=== PATIENT | female | born 1950 | race Caucasian/White ===

== ENCOUNTER 2017-11-16 07:36 | Inpatient (IN) ==
[2017-11-16] MEDS ORDERED: 0.9 % Sodium Chloride 500 ML IVC ONE (07:50)
[2017-11-16 08:07] LABS: INR 1.1; Prothrombin Time 11.5 Seconds (9.4-12.1)
[2017-11-16 08:10] LABS: Activated Partial Thrombo Time 45.5 Seconds (26.0-36.0); Hematocrit 42.6 % (35.3-44.9); Hemoglobin 12.8 g/dL (11.5-15.4); Mean Corpuscular Hemoglobin 31.9 pg (28.0-33.3); Mean Corpuscular Volume 106.2 fL (83.0-100.0); Mean Platelet Volume 10.6 fL (9.4-12.4); Nucleated Red Blood Cells 0.3 /100 WBC (0); Platelet Count 180 K/mcL (140-400); Red Blood Count 4.01 M/mcL (3.82-4.97); Red Cell Distribution Width 12.5 % (11.5-14.5)
[2017-11-16 08:12] LABS: Troponin I < 0.03 ng/mL (< 0.04)
[2017-11-16 08:15] LABS: BUN/Creatinine Ratio 19 (6-26); Blood Urea Nitrogen 24 mg/dL (8-23); Calcium 9.7 mg/dL (8.6-10.3); Carbon Dioxide 14 mEq/L (23-29); Chloride 109 mEq/L (98-107); Glucose 244 mg/dL (70-105); Osmolality,Calculated 312 (280-300); Potassium 4.2 mEq/L (3.5-5.1); Sodium 145 mEq/L (136-145); eGFR For African Americans 50 (> 60); eGFR For Non-African Americans 42 (> 60)
[2017-11-16 08:41] LABS: ABG Base Excess -13 mEq/L (-2 to 3); ABG HCO3 15 mEq/L (21-27); ABG Oxygen Saturation 93 % (95-98); ABG PCO2 38 mmHg (35-45); ABG PO2 81 mmHg (85-104); ABG TCO2 16 mEq/L (20-26); Blood Gas Modality ASSIST CONTROL; Blood Gas PEEP 5 cm H2O; Blood Gas Respiration Rate 20; Blood Gas VT 450 cc
[2017-11-16 08:42] LABS: Eosinophils # 0.3 K/mcL (0.0-0.6); Lymphocytes # 7.5 K/mcL (0.6-4.6); Monocytes # 2.1 K/mcL (0.0-1.3); Neutrophils # 3.5 K/mcL (1.6-8.9); Reactive Lymphocytes Present (Not Present)
[2017-11-16 08:44] LABS: Platelet Estimate Normal (Normal)
--- NOTE | 2017-11-16 09:01 | Emergency Department Note ---
Disposition Clinical Impression: Cardiac arrest Disposition: Admitted As Inpatient Condition: Critical Time of Disposition: 11:57 General Adult HPI - General Chief complaint: ED Cardiac Arrest/CPR Stated complaint: arrest Time Seen by Provider: 11/16/17 07:49 Nursing Notes Reviewed: Yes Vital Signs Reviewed: Yes - History of Present Illness HPI Narrative: Patient brought in by EMS in full cardiac arrest. Was reported to be choking at her outlying facility. EMS reports patient was mentating appropriately and moving air. She ambulated to their truck where she subsequently went into full cardiac arrest. Pain Scale: 0 - Related Data Home Medications Medication Instructions Recorded Confirmed Aspirin Enteric Coated [Aspirin EC] 325 mg PO DAILY 11/16/17 11/16/17 Benztropine [Cogentin] 1 mg PO BID 11/16/17 11/16/17 Divalproex Sodium [Depakote 125 mg PO TID 11/16/17 11/16/17 Sprinkle] Donepezil [Aricept] 5 mg PO DAILY 11/16/17 11/16/17 LORazepam [Ativan] 0.5 mg PO TID 11/16/17 11/16/17 Meloxicam [Meloxicam] 15 mg PO DAILY 11/16/17 11/16/17 Mirtazapine [Remeron] 15 mg PO HS 11/16/17 11/16/17 Omeprazole [PriLOSEC] 20 mg PO DAILY 11/16/17 11/16/17 Ziprasidone HCl [Ziprasidone HCl] 20 mg PO TID 11/16/17 11/16/17 Allergies Allergy/AdvReac Type Severity Reaction Status Date / Time acetaminophen [From Vicodin] Allergy Rash Verified 03/17/15 19:12 hydrocodone [From Vicodin] Allergy Rash Verified 03/17/15 19:12 Limitations: ROS unobtainable due to patients medical condition Past Medical History - Past Medical History Medical history: Reports: arthritis, dementia, GERD Psychiatric history: Reports: anxiety, depression, other - Social History Smoking Status: Never smoker Smokeless Tobacco Status: No Alcohol use: Reports: none Drug use: Reports: none Physical Exam - General Limitations: altered mental status General appearance: in distress, other (Cardiac arrest) - Head Head exam: atraumatic, normocephalic, normal inspection - Eye Eye exam: Present: other (Pupils reactive to light left pupil mildly more dilated than right pupil. Left pupil 5 mm right pupil 4 mm.) - ENT ENT exam: normal exam, normal oropharynx, mucous membranes moist, other (Food in posterior oropharynx) - Neck Neck exam: Present: normal inspection, trachea midline - Respiratory Respiratory exam: Present: other (Lung sounds rhonchorous are present bilaterally respirations assisted.) - Cardiovascular Cardiovascular exam: Present: other (Pulseless) - Abdominal Exam Abdominal exam: Present: soft. Absent: distention - Extremities Exam Extremities exam: Absent: pedal edema - Skin Skin exam: Present: warm, dry, intact Course Course Narrative: Patient is brought in by EMS in full cardiac arrest. Patient lives at a facility and has a history of MRDD. They state that at home she was choking on a waffle however her airway became clear and she was mentating appropriately when EMS arrived. They stated she ambulated to the cot and subsequently went into full cardiac arrest in the ambulance. They performed CPR prior to arrival here. CPR was continued here. Patient was easy to crs-aalii-awps ventilate. She was placed on the cardiac surgeon. At arrival here during intubation patient had a large amount of food product in her airway. Patient was intubated with a d blade on the [facility] due to a reported history of a C-spine injury. I subsequently looked at her previous C-spine images and the patient does have a transverse process fracture at C4. We placed her in a c-collar. Patient was given epinephrine every 2-3 minutes throughout the cardiac arrest. She is also given 2 amps of bicarbonate and calcium chloride. Patient was warm and glucose was normal. Patient was in asystole throughout the arrest until the patient regained a pulse and was in atrial fibrillation with RVR. Patient was placed on an epinephrine drip. Postarrest bedside echo showed wall motion in all 4 chambers. Did not appear to be an effusion. Patient was placed on the ventilator. We sent basic labs. We will admit her to the ICU. I spoke with the ICU attending is requesting a CTA of her chest as well as a CT of her head and C-spine. We will order these. Chest x-ray of patient's chest showed a calcified mass in the center of her chest. It does not appear to be bronchial. Caregiver is at bedside state that the calcified lesion on the patient's chest x-ray had been present for several years. We also consult to interventional cardiology due to the patient's postarrest. We discussed there was no ST elevation however she does have diffuse depression. He saw the patient at bedside. He was willing to The patient if needed however believe that this could possibly be due to a anoxic arrest due to choking. Patient was found to have a mildly elevated white blood cell count. His CK and troponin were ordered. Her troponin is elevated as to be expected after the cardiac arrest. - Consultations Consultation #1: I spoke with Dr Mccarthy. He is requesting a CTA of the chest CT noncontrast of the head and C-spine. I feel this is reasonable. We also spoke about cooling the patient if cardiology does not want different intervention and I feel this is reasonable. Time: :11 Consultation #2: I spoke with Dr Munson. He is coming to see the Pt. Time: :19 Consultation #3: Dr. Munson at bedside. Stating that he will Patient if needed. Requesting this time to have serial troponins. No indication for emergent catheter at this time. We will reevaluate the patient after her CT head and CT C-spine and CT chest. Time: 09:30 Additional Consultation(s): 0907 Dr. Mccarthy at bedside. Agreeable for a CT chest CT C-spine CTA chest. Vital Signs Temperature 0 F L 11/16/17 07:38 Pulse Rate 0 11/16/17 07:38 Respiratory Rate 0 11/16/17 07:38 Blood Pressure 0/0 11/16/17 07:38 O2 Sat by Pulse Oximetry 0 11/16/17 07:38 Temperature 94.3 F L 11/16/17 10:21 Pulse Rate 70 11/16/17 10:21 Respiratory Rate 20 11/16/17 11:03 Blood Pressure 109/51 11/16/17 11:03 O2 Sat by Pulse Oximetry 93 11/16/17 11:03 Oxygen Delivery Oxygen Delivery Ventilator Procedures - Central Line Placement Right Femoral Central Line Inserted*: Yes Central Line Catheter Replacement*: No Central Line Insertion: emergent Procedural Pause: verify patient name and date of , timeout performed per policy, lloyd and assess the site, assemble equipment and verify supplies, perform hand hygiene During the Procedure: clinician is wearing sterile gloves, cap, mask,& gown during insertion, sterile field and sterile technique are maintained, everyone in room is wearing a mask Central Line Prep: Chlorhexidine scrub Prep the Procedure Site: apply chloraprep to the skin using a back and forth scrubbing motion, apply chloraprep for 30 seconds (upper body), 1-2 min ( femoral sites), allow prep to dry, drape the patient with a full body drape Central Line Lumen Inserted: triple Post Procedure: sutured in place, good blood return, all ports aspirated, flushed, capped, sterile dressing applied, guide wire removed and visualized Patient Tolerated Procedure: well Complications: none Date: 11/16/17 Time: 08:30 - Intubation Time out performed: No sedative: none Laryngoscope: fiber optic video scope Assist Device Used: Bougie ET Tube Size: 7.5 ET Tube Uncuffed: No Tube Secured Depth (cm): 23 Tube Secured Location: lips Tube Placement Confirmation: visualized tube passing through cords, equal breath sounds bilaterally, no breath sounds over epigastrium, confirmation by capnometry Patient Tolerated Procedure: well, other (Patient had a significant amount of food product and posterior oropharynx.) Intubation Complications: difficult intubation (Due to C-spine fracture. As well as food product and posterior pharynx.) - Ultrasound-Other Narrative: Bedside ultrasound showed normal wall movement however there is no pericardial effusion. Limited study performed by myself supervised by Dr. Decker. Medical Decision Making - Medical Records Medical records reviewed: Yes I reviewed the patient's medical records. - Lab Data Lab results reviewed: Yes I reviewed the patient's lab results. Result diagrams: 11/16/17 07:38 11/16/17 07:38 Lab Results 11/16/17 11/16/17 11/16/17 Range/Units 07:38 07:38 07:38 WBC 13.3 H (4.3-11.1) K/mcL RBC 4.01 (3.82-4.97) M/mcL Hgb 12.8 (11.5-15.4) g/dL Hct 42.6 (35.3-44.9) % MCV 106.2 H (83.0-100.0) fL MCH 31.9 (28.0-33.3) pg MCHC 30.0 L (31.6-35.5) g/dL RDW 12.5 (11.5-14.5) % Plt Count 180 (140-400) K/mcL MPV 10.6 (9.4-12.4) fL Seg Neutrophils % 26.0 % Lymphocytes % 56.0 % Monocytes % 16.0 % Eosinophils % 2.0 % Neutrophils # 3.5 (1.6-8.9) K/mcL Lymphocytes # 7.5 H (0.6-4.6) K/mcL Monocytes # 2.1 H (0.0-1.3) K/mcL Eosinophils # 0.3 (0.0-0.6) K/mcL Nucleated RBCs/100 WBC 0.3 H (0) /100 WBC Reactive Lymphocytes Present A (Not Present) Platelet Estimate Normal (Normal) Smear Path Review See Below PT 11.5 (9.4-12.1) Seconds INR 1.1 APTT 45.5 H (26.0-36.0) Seconds Sample Site ABG pH (7.32-7.45) pH Units ABG pCO2 (35-45) mmHg ABG pO2 (85-104) mmHg ABG HCO3 (21-27) mEq/L ABG Total CO2 (20-26) mEq/L ABG O2 Saturation (95-98) % ABG Base Excess (-2 to 3) mEq/L Respiration Rate O2 Delivery Device Blood Gas Modality Inspired O2 (1-15=lpm [id number]=%) Tidal Volume cc PEEP cm H2O Sodium 145 (136-145) mEq/L Potassium 4.2 (3.5-5.1) mEq/L Chloride 109 H (98-107) mEq/L Carbon Dioxide 14 L (23-29) mEq/L BUN 24 H (8-23) mg/dL Creatinine 1.29 H (0.60-1.20) mg/dL Est GFR ( Amer) 50 L (> 60) Est GFR (Non-Af Amer) 42 L (> 60) BUN/Creatinine Ratio 19 (6-26) Glucose 244 H (70-105) mg/dL POC Glucose (70-99) mg/dL Calculated Osmolality 312 H (280-300) Calcium 9.7 (8.6-10.3) mg/dL Creatine Kinase 130 (30-223) Units/L Troponin I < 0.03 (< 0.04) ng/mL 11/16/17 11/16/17 Range/Units 07:52 08:34 WBC (4.3-11.1) K/mcL RBC (3.82-4.97) M/mcL Hgb (11.5-15.4) g/dL Hct (35.3-44.9) % MCV (83.0-100.0) fL MCH (28.0-33.3) pg MCHC (31.6-35.5) g/dL RDW (11.5-14.5) % Plt Count (140-400) K/mcL MPV (9.4-12.4) fL Seg Neutrophils % % Lymphocytes % % Monocytes % % Eosinophils % % Neutrophils # (1.6-8.9) K/mcL Lymphocytes # (0.6-4.6) K/mcL Monocytes # (0.0-1.3) K/mcL Eosinophils # (0.0-0.6) K/mcL Nucleated RBCs/100 WBC (0) /100 WBC Reactive Lymphocytes (Not Present) Platelet Estimate (Normal) Smear Path Review PT (9.4-12.1) Seconds INR APTT (26.0-36.0) Seconds Sample Site R Radial ABG pH 7.20 L* (7.32-7.45) pH Units ABG pCO2 38 (35-45) mmHg ABG pO2 81 L (85-104) mmHg ABG HCO3 15 L (21-27) mEq/L ABG Total CO2 16 L (20-26) mEq/L ABG O2 Saturation 93 L (95-98) % ABG Base Excess -13 L (-2 to 3) mEq/L Respiration Rate 20 O2 Delivery Device Adult Vent Blood Gas Modality ASSIST CONTROL Inspired O2 50.0 (1-15=lpm [id number]=%) Tidal Volume 450 cc PEEP 5 cm H2O Sodium (136-145) mEq/L Potassium (3.5-5.1) mEq/L Chloride (98-107) mEq/L Carbon Dioxide (23-29) mEq/L BUN (8-23) mg/dL Creatinine (0.60-1.20) mg/dL Est GFR ( Amer) (> 60) Est GFR (Non-Af Amer) (> 60) BUN/Creatinine Ratio (6-26) Glucose (70-105) mg/dL POC Glucose 102 H (70-99) mg/dL Calculated Osmolality (280-300) Calcium (8.6-10.3) mg/dL Creatine Kinase (30-223) Units/L Troponin I (< 0.04) ng/mL - Radiology Data Radiology results reviewed: Yes I reviewed the patient's radiology results. Chest X-Ray 11/16/17 07:50 IMPRESSION: 1. Endotracheal tube lies 1.9 cm above the [place]. 2. Enteric tube is in the stomach. 3. Bilateral asymmetric pulmonary consolidation more prominent on the left. This may represent atypical pneumonia versus less likely pulmonary edema. D/ / 11/16/2017 09:43:23 Gino Wilson MD / juan jose Interpreting Provider: Gino Wilson MD KUB X-Ray 11/16/17 08:00 IMPRESSION: The enteric tube is in the stomach with the tip at the distal gastric body. D/ / 11/16/2017 09:40:53 Gnio Wilson MD / megan Interpreting Provider: Gino Wilson MD - EKG Data EKG #1 EKG attestation: Yes I reviewed and interpreted this EKG. EKG results narrative: 07:49 Atrial fibrillation with RVR at 116. QRS duration is 135. QT is 323. QTC is 392. She has diffuse ST depressions. No signs of ST elevation. Previous EKG in August 2016 was a sinus rhythm at a rate of 77. EKG #2 EKG attestation: Yes I reviewed and interpreted this EKG. EKG results narrative: Repeat EKG 833 Ventricular rate of 127. Atrial fibrillation with RVR. QRS duration is 125. QT is 3:30. QTC is 414. Patient still has diffuse ST depressions. There are no signs of ST elevations. EKG #3 EKG attestation: Yes I reviewed and interpreted this EKG. EKG results narrative: Repeat EKG timed 927. Normal sinus rhythm at a rate of 63. UT interval is 147. Castration is 138 QT is 510. QTC is 518. Patient does have an elongated QT segment. She has some ST depressions in leads V3 through V6. There are still no signs of ST elevation.
[2017-11-16] MEDS ORDERED: Isovue-370 500 ML INFUS..BTL IV ONE (09:05)
[2017-11-16 09:46] LABS: Creatine Kinase 130 Units/L (30-223)
[2017-11-16 10:06] LABS: Troponin I 1.96 ng/mL (< 0.04)
--- NOTE | 2017-11-16 10:07 | Event Note ---
Date of Encounter: 11/16/17 Time of Encounter: 10:04 - Cardiology Event Note Called to evaluate patient in the ED for possible emergent LHC. Patient sedated on the Vent intubated. Dr. Rooney at the bedside. EKG without any ST elevations at this time. Rate at 60-65 bpm. Patient choked on waffle which was in airway on arrival to the ED. Patient arrested with asystole, NO Vtachor Vfib noted. Patient did not complain of chest pain after initial choking episode and asystole. Severe resp acidosis on ABG. On exam patient with left pupil dilated > right and fixed. CT head, chest prior to further cardiac testing. Initial trop negative, serial trops and CKS ordered. Please contact if elevated trops. Rounding team aware and will see in consult.
--- NOTE | 2017-11-16 10:26 | Emergency Department Note ---
Disposition Clinical Impression: Cardiac arrest Disposition: Admitted As Inpatient General Adult HPI - General Chief complaint: ED Cardiac Arrest/CPR Stated complaint: arrest Time Seen by Provider: 11/16/17 07:49 - History of Present Illness Pain Scale: 0 - Related Data Home Medications Medication Instructions Recorded Confirmed Aspirin Enteric Coated [Aspirin EC] 325 mg PO DAILY 11/16/17 11/16/17 Benztropine [Cogentin] 1 mg PO BID 11/16/17 11/16/17 Divalproex Sodium [Depakote 125 mg PO TID 11/16/17 11/16/17 Sprinkle] Donepezil [Aricept] 5 mg PO DAILY 11/16/17 11/16/17 LORazepam [Ativan] 0.5 mg PO TID 11/16/17 11/16/17 Meloxicam [Meloxicam] 15 mg PO DAILY 11/16/17 11/16/17 Mirtazapine [Remeron] 15 mg PO HS 11/16/17 11/16/17 Omeprazole [PriLOSEC] 20 mg PO DAILY 11/16/17 11/16/17 Ziprasidone HCl [Ziprasidone HCl] 20 mg PO TID 11/16/17 11/16/17 Allergies Allergy/AdvReac Type Severity Reaction Status Date / Time acetaminophen [From Vicodin] Allergy Rash Verified 03/17/15 19:12 hydrocodone [From Vicodin] Allergy Rash Verified 03/17/15 19:12 Past Medical History - Past Medical History Medical history: Reports: arthritis, dementia, GERD Psychiatric history: Reports: anxiety, depression, other - Social History Smoking Status: Never smoker Smokeless Tobacco Status: No Alcohol use: Reports: none Drug use: Reports: none Physical Exam - General General appearance: in distress Course - Reevaluation(s) Reevaluation #1: Attestation note I examined this patient and my medical decision-making was reviewed with the emergency medicine resident. I agree with the documented findings, disposition and treatment plan as described except to the extent set forth below. Patient seen with emergency medicine resident Dr. Rossy Rooney, Please see a copy of his note for details of the H&P, ED evaluation, management and disposition. I have independently evaluated the patient and confirmed appropriate portions of the history and physical exam. 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 Then upon the joint cardio pulmonary rest CPR was started emergently was transported here without delay. Upon arrival IV was established Accu-Chek was 1:30 several rounds of ACLS with CPR was performed with return of spontaneous circulation confirmed by training bedside ultrasound by Dr. Rooney. Patient's troponin elevated, not unexpectedly at 1.97, we consulted interventional cardiology who felt emergent catheter was not indicated at this time patient is undergoing CT scan of the head and chest. Patient will be admitted to the intensive care unit. We have provided 75 minutes of critical care service for this patient Time: 10:24 Vital Signs Temperature 0 F L 11/16/17 07:38 Pulse Rate 0 11/16/17 07:38 Respiratory Rate 0 11/16/17 07:38 Blood Pressure 0/0 11/16/17 07:38 O2 Sat by Pulse Oximetry 0 11/16/17 07:38 Temperature 94.3 F L 11/16/17 10:21 Pulse Rate 70 11/16/17 10:21 Respiratory Rate 20 11/16/17 10:21 Blood Pressure 111/51 11/16/17 10:21 O2 Sat by Pulse Oximetry 98 11/16/17 10:21 Oxygen Delivery Oxygen Delivery Ventilator Medical Decision Making - Lab Data Result diagrams: 11/16/17 07:38 11/16/17 07:38 Lab Results 11/16/17 11/16/17 11/16/17 Range/Units 07:38 07:38 07:38 WBC 13.3 H (4.3-11.1) K/mcL RBC 4.01 (3.82-4.97) M/mcL Hgb 12.8 (11.5-15.4) g/dL Hct 42.6 (35.3-44.9) % MCV 106.2 H (83.0-100.0) fL MCH 31.9 (28.0-33.3) pg MCHC 30.0 L (31.6-35.5) g/dL RDW 12.5 (11.5-14.5) % Plt Count 180 (140-400) K/mcL MPV 10.6 (9.4-12.4) fL Seg Neutrophils % 26.0 % Lymphocytes % 56.0 % Monocytes % 16.0 % Eosinophils % 2.0 % Neutrophils # 3.5 (1.6-8.9) K/mcL Lymphocytes # 7.5 H (0.6-4.6) K/mcL Monocytes # 2.1 H (0.0-1.3) K/mcL Eosinophils # 0.3 (0.0-0.6) K/mcL Nucleated RBCs/100 WBC 0.3 H (0) /100 WBC Reactive Lymphocytes Present A (Not Present) Platelet Estimate Normal (Normal) PT 11.5 (9.4-12.1) Seconds INR 1.1 APTT 45.5 H (26.0-36.0) Seconds Sample Site ABG pH (7.32-7.45) pH Units ABG pCO2 (35-45) mmHg ABG pO2 (85-104) mmHg ABG HCO3 (21-27) mEq/L ABG Total CO2 (20-26) mEq/L ABG O2 Saturation (95-98) % ABG Base Excess (-2 to 3) mEq/L Respiration Rate O2 Delivery Device Blood Gas Modality Inspired O2 (1-15=lpm [id number]=%) Tidal Volume cc PEEP cm H2O Sodium 145 (136-145) mEq/L Potassium 4.2 (3.5-5.1) mEq/L Chloride 109 H (98-107) mEq/L Carbon Dioxide 14 L (23-29) mEq/L BUN 24 H (8-23) mg/dL Creatinine 1.29 H (0.60-1.20) mg/dL Est GFR ( Amer) 50 L (> 60) Est GFR (Non-Af Amer) 42 L (> 60) BUN/Creatinine Ratio 19 (6-26) Glucose 244 H (70-105) mg/dL POC Glucose (70-99) mg/dL Calculated Osmolality 312 H (280-300) Calcium 9.7 (8.6-10.3) mg/dL Creatine Kinase 130 (30-223) Units/L Troponin I < 0.03 (< 0.04) ng/mL 11/16/17 11/16/17 Range/Units 07:52 08:34 WBC (4.3-11.1) K/mcL RBC (3.82-4.97) M/mcL Hgb (11.5-15.4) g/dL Hct (35.3-44.9) % MCV (83.0-100.0) fL MCH (28.0-33.3) pg MCHC (31.6-35.5) g/dL RDW (11.5-14.5) % Plt Count (140-400) K/mcL MPV (9.4-12.4) fL Seg Neutrophils % % Lymphocytes % % Monocytes % % Eosinophils % % Neutrophils # (1.6-8.9) K/mcL Lymphocytes # (0.6-4.6) K/mcL Monocytes # (0.0-1.3) K/mcL Eosinophils # (0.0-0.6) K/mcL Nucleated RBCs/100 WBC (0) /100 WBC Reactive Lymphocytes (Not Present) Platelet Estimate (Normal) PT (9.4-12.1) Seconds INR APTT (26.0-36.0) Seconds Sample Site R Radial ABG pH 7.20 L* (7.32-7.45) pH Units ABG pCO2 38 (35-45) mmHg ABG pO2 81 L (85-104) mmHg ABG HCO3 15 L (21-27) mEq/L ABG Total CO2 16 L (20-26) mEq/L ABG O2 Saturation 93 L (95-98) % ABG Base Excess -13 L (-2 to 3) mEq/L Respiration Rate 20 O2 Delivery Device Adult Vent Blood Gas Modality ASSIST CONTROL Inspired O2 50.0 (1-15=lpm [id number]=%) Tidal Volume 450 cc PEEP 5 cm H2O Sodium (136-145) mEq/L Potassium (3.5-5.1) mEq/L Chloride (98-107) mEq/L Carbon Dioxide (23-29) mEq/L BUN (8-23) mg/dL Creatinine (0.60-1.20) mg/dL Est GFR ( Amer) (> 60) Est GFR (Non-Af Amer) (> 60) BUN/Creatinine Ratio (6-26) Glucose (70-105) mg/dL POC Glucose 102 H (70-99) mg/dL Calculated Osmolality (280-300) Calcium (8.6-10.3) mg/dL Creatine Kinase (30-223) Units/L Troponin I (< 0.04) ng/mL
[2017-11-16] MEDS ORDERED: Norepinephrine 4 MG in D5% in Water 250 ML IVC SCH (10:30)
[2017-11-16] MEDS: *HR* Morphine 2 MG/ML SYRINGE IVP PRN ×2 (13:45→15:58)
[2017-11-16] MEDS: *HR* LORazepam 2 MG/ML VIAL IVP PRN ×2 (13:46→15:58)
--- NOTE | 2017-11-16 14:01 | Pulmonology History & Physical ---
<Kendall Maier - Last Filed: 11/16/17 13:56> Date of Encounter: 11/16/17 Time of Encounter: 11:00 Assessment and Plan (1) Cardiac arrest Current visit: Yes Status: Acute Cardiac arrest status post ROSC The patient received approximately 5 rounds of CPR ROSC was achieved, pressure supported with epinephrine It is unclear how long the patient remained anoxic EKG did demonstrate diffuse ST-T wave depressions Cardiology was contacted, recommended scans prior to any further cardiac work (2) Aortic dissection Current visit: Yes Status: Acute Chromo type A aortic dissection Likely secondary to traumatic CPR Findings were discussed with thoracic/vascular surgeon from [facility] Transfer was considered, however the patient's prognosis is extremely guarded It does appear the patient has some degree of anoxic brain injury It was our concern that the final injuries may not be compatible with recovery Long discussion with the family yielded a result the family would prefer for the patient to remain comfortable They opted not to transfer the patient We will place the patient on comfort care measures and extubated Qualifiers: Aortic location: thoracoabdominal aorta Qualified Code(s): I71.03 - Dissection of thoracoabdominal aorta (3) Anoxic brain damage Current visit: Yes Status: Acute Likely anoxic brain damage secondary to cardiac arrest The patient does show signs of posturing as well as myoclonic jerks that are intermittent but frequent The patient's pupils are unequal in size, and eyes deviated in different directions Head CT is negative, however we will withhold MRI and EEG Patient will remain comfort care at this History of Present Illness Chief complaint: Cardiac arrest HPI: Ms. Roach is a 66 year old female with history of mild MRDD and recent C-spine fracture following a mechanical fall in June 2017 who presents to the ED and cardiac arrest. The patient is intubated and unconscious at time of transfer, and history is maintained primarily from family and witnesses. She apparently was eating breakfast this morning and began choking on a waffle at which time the Heimlich maneuver was performed and she was successfully able to expel the food material. EMS arrived at the scene and the patient was alert and responsive, and even sit up to walk to the cot. Upon transport, the patient apparently had a syncopal event, collapse, and it was found that she was in cardiac arrest. CPR was initiated immediately, and the patient was transported to the ED where a CODE BLUE was initiated. The patient received 5 rounds of ACLS including epinephrine, 2 A of bicarbonate, calcium chloride. She was resuscitated successfully and the central line was placed to allow for vasopressor support. An EKG at that time did demonstrate the patient had diffuse and marketed ST-T wave depressions along with an elevated troponin. Cardiology was consulted notes on the patient in the ED. At that time she was transferred to the ICU. Past Med Surg Social Fam HX - Past Medical History Medical history: arthritis, dementia, GERD Psychiatric history: anxiety, depression, other - Social History Smoking Status: Never smoker Smokeless Tobacco Status: No Alcohol use: none Drug use: none Medications and Allergies Aspirin Enteric Coated [Aspirin EC] 325 mg PO DAILY 11/16/17 [History] Benztropine [Cogentin] 1 mg PO BID 11/16/17 [History] Divalproex Sodium [Depakote Sprinkle] 125 mg PO TID 11/16/17 [History] Donepezil [Aricept] 5 mg PO DAILY 11/16/17 [History] LORazepam [Ativan] 0.5 mg PO TID 11/16/17 [History] Meloxicam [Meloxicam] 15 mg PO DAILY 11/16/17 [History] Mirtazapine [Remeron] 15 mg PO HS 11/16/17 [History] Omeprazole [PriLOSEC] 20 mg PO DAILY 11/16/17 [History] Ziprasidone HCl [Ziprasidone HCl] 20 mg PO TID 11/16/17 [History] 3 Allergy/AdvReac Type Severity Reaction Status Date / Time acetaminophen [From Vicodin] Allergy Rash Verified 03/17/15 19:12 hydrocodone [From Vicodin] Allergy Rash Verified 03/17/15 19:12 ROS unobtainable: due to endotracheal tube All Systems: The remainder of the systems were reviewed and are negative Physical Examination Vital Signs: Vital Signs, Last 4 Hours Temp Pulse Resp BP Pulse Ox 11/16/17 12:08 70 11/16/17 11:03 20 109/51 93 11/16/17 10:21 94.3 F L 70 20 111/51 98 General appearance: comatose Eyes: other (Pupils are unequal, left eye deviates towards the left right eye deviates towards the right, there is no reaction to light.) ENT: oropharynx moist, oropharynx erythematous, other (There is serosanguineous fluid secondary to what appears to be a traumatic intubation) Neck: supple, no JVD Effort: mildly labored Auscultation: bilateral: rhonchi (Coarse rhonchi) Cardiovascular: regular rate and rhythm Gastrointestinal: soft, non-tender Integumentary: normal Extremities: no cyanosis, no edema, no clubbing Musculoskeletal: no deformities, ROM normal unable to assess due to mental status, other (Pupils unequal in size, left eye deviates laterally to the left, right eye deviates laterally to the right. The patient presents with intermittent myoclonic jerks and occasional posturing. Babinski sign is negative. DTRs appear to remain intact) Results - Laboratory Findings CBC and BMP: 11/16/17 07:38 11/16/17 07:38 ABG ABG pH 7.20 pH Units (7.32-7.45) L* 11/16/17 08:34 ABG pCO2 38 mmHg (35-45) 11/16/17 08:34 ABG pO2 81 mmHg (85-104) L 11/16/17 08:34 ABG O2 Saturation 93 % (95-98) L 11/16/17 08:34 PT/INR, D-dimer PT 11.5 Seconds (9.4-12.1) 11/16/17 07:38 Abnormal lab findings: Abnormal lab results WBC 13.3 K/mcL (4.3-11.1) H 11/16/17 07:38 MCV 106.2 fL (83.0-100.0) H 11/16/17 07:38 MCHC 30.0 g/dL (31.6-35.5) L 11/16/17 07:38 Lymphocytes # 7.5 K/mcL (0.6-4.6) H 11/16/17 07:38 Monocytes # 2.1 K/mcL (0.0-1.3) H 11/16/17 07:38 Nucleated RBCs/100 WBC 0.3 /100 WBC (0) H 11/16/17 07:38 Reactive Lymphocytes Present (Not Present) A 11/16/17 07:38 APTT 45.5 Seconds (26.0-36.0) H 11/16/17 07:38 ABG pH 7.20 pH Units (7.32-7.45) L* 11/16/17 08:34 ABG pO2 81 mmHg (85-104) L 11/16/17 08:34 ABG HCO3 15 mEq/L (21-27) L 11/16/17 08:34 ABG Total CO2 16 mEq/L (20-26) L 11/16/17 08:34 ABG O2 Saturation 93 % (95-98) L 11/16/17 08:34 ABG Base Excess -13 mEq/L (-2 to 3) L 11/16/17 08:34 Chloride 109 mEq/L (98-107) H 11/16/17 07:38 Carbon Dioxide 14 mEq/L (23-29) L 11/16/17 07:38 BUN 24 mg/dL (8-23) H 11/16/17 07:38 Creatinine 1.29 mg/dL (0.60-1.20) H 11/16/17 07:38 Est GFR ( Amer) 50 (> 60) L 11/16/17 07:38 Est GFR (Non-Af Amer) 42 (> 60) L 11/16/17 07:38 Glucose 244 mg/dL (70-105) H 11/16/17 07:38 POC Glucose 102 mg/dL (70-99) H 11/16/17 07:52 Calculated Osmolality 312 (280-300) H 11/16/17 07:38 Lactic Acid > 10.0 mmol/L (0.5-2.2) H* 11/16/17 10:59 Troponin I 1.96 ng/mL (< 0.04) H* 11/16/17 09:33 <Suhail Mccarthy W - Last Filed: 11/16/17 14:31> Date of Encounter: 11/16/17 History of Present Illness HPI: Ms. Roach is a 66 year old female All Systems: The remainder of the systems were reviewed and are negative Physical Examination Vital Signs: Vital Signs, Last 4 Hours Temp Pulse Resp BP Pulse Ox 11/16/17 14:06 89 28 82/51 87 11/16/17 13:00 66 20 90/43 98 11/16/17 12:08 70 11/16/17 12:00 96.0 F L 70 20 109/51 97 11/16/17 11:03 20 109/51 93 Results - Laboratory Findings CBC and BMP: 11/16/17 07:38 11/16/17 07:38 ABG ABG pH 7.20 pH Units (7.32-7.45) L* 11/16/17 08:34 ABG pCO2 38 mmHg (35-45) 11/16/17 08:34 ABG pO2 81 mmHg (85-104) L 11/16/17 08:34 ABG O2 Saturation 93 % (95-98) L 11/16/17 08:34 PT/INR, D-dimer PT 11.5 Seconds (9.4-12.1) 11/16/17 07:38 Abnormal lab findings: Abnormal lab results WBC 13.3 K/mcL (4.3-11.1) H 11/16/17 07:38 MCV 106.2 fL (83.0-100.0) H 11/16/17 07:38 MCHC 30.0 g/dL (31.6-35.5) L 11/16/17 07:38 Lymphocytes # 7.5 K/mcL (0.6-4.6) H 11/16/17 07:38 Monocytes # 2.1 K/mcL (0.0-1.3) H 11/16/17 07:38 Nucleated RBCs/100 WBC 0.3 /100 WBC (0) H 11/16/17 07:38 Reactive Lymphocytes Present (Not Present) A 11/16/17 07:38 APTT 45.5 Seconds (26.0-36.0) H 11/16/17 07:38 ABG pH 7.20 pH Units (7.32-7.45) L* 11/16/17 08:34 ABG pO2 81 mmHg (85-104) L 11/16/17 08:34 ABG HCO3 15 mEq/L (21-27) L 11/16/17 08:34 ABG Total CO2 16 mEq/L (20-26) L 11/16/17 08:34 ABG O2 Saturation 93 % (95-98) L 11/16/17 08:34 ABG Base Excess -13 mEq/L (-2 to 3) L 11/16/17 08:34 Chloride 109 mEq/L (98-107) H 11/16/17 07:38 Carbon Dioxide 14 mEq/L (23-29) L 11/16/17 07:38 BUN 24 mg/dL (8-23) H 11/16/17 07:38 Creatinine 1.29 mg/dL (0.60-1.20) H 11/16/17 07:38 Est GFR ( Amer) 50 (> 60) L 11/16/17 07:38 Est GFR (Non-Af Amer) 42 (> 60) L 11/16/17 07:38 Glucose 244 mg/dL (70-105) H 11/16/17 07:38 POC Glucose 102 mg/dL (70-99) H 11/16/17 07:52 Calculated Osmolality 312 (280-300) H 11/16/17 07:38 Lactic Acid > 10.0 mmol/L (0.5-2.2) H* 11/16/17 10:59 Troponin I 1.96 ng/mL (< 0.04) H* 11/16/17 09:33 - Attending Attestation I examined this patient and my medical decision-making was reviewed with the Resident Physician. I agree with the documented findings, disposition and treatment plan as described except to the extent set forth below. We independently had [id number] contact with the patient I spent 60min of Critical Care time with this patient. It involved decision making of high complexity to assess, manipulate, and support vital organ system failure and/or to prevent further life threatening deterioration of the patient' s condition. The time involved in the performance of separately reportable procedures was not counted toward critical care time. Patient seen and examined at bedside Labs, radiology, chart personally reviewed. This is a 66-year-old woman who unfortunately suffered a cardiac arrest as a result of a choking incident earlier in the day. Per medical record and first responders the patient had been eating a wall fall choked a Heimlich maneuver was performed with removal of the foreign body and patient was able to breathe subsequently however upon ambulating to the ambulance had a syncopal episode and went into full cardiac arrest. CPR was performed by the EMS squad until arrival to the ED and after approximately 4 rounds of ACLS ROSC was obtained. During this time the patient had been intubated. Patient was at this point in shock and requiring vasopressor support with epinephrine. ECG was notable for significant ST depressions in the lateral leads and cardiology was consulted. Initial chest x-ray was notable for bilateral infiltrates and a ovoid mass that appeared calcified. I was called regarding this patient for admission to the ICU subsequently. I had requested imaging including a head CT CT of the neck (patient had suffered a recent cervical spine injury) and CTA of the chest to evaluate for traumatic sequelae related to Heimlich maneuver and CPR and also exclude possibility of pulmonary embolus. The scans were obtained and the patient was transferred to the ICU the radiologist called the emergency room physician when the patient was in transport to the ICU and explained that she had had a type B aortic dissection from the root of the aorta to the bifurcation of the iliac arteries. Upon admission to the ICU patient remained in shock with evidence of multiorgan system failure including severe metabolic acidosis patient remained on vent requiring significant ventilatory support. Unfortunately she started to show signs of anoxic brain injury including more frequent evidence of myoclonic jerking. I called the radiologist directly discussed the case with him and confirmed the findings of the aortic dissection. I subsequently had a discussion with the family which included 3 adult brothers and extended family members along with overhead cleaner and the group along with the patient came from explained that the situation is very grave and that for hope of treatment she would require surgical intervention for the aortic dissection however given likely severe anoxic brain injury the overall utility of such a procedure and continued aggressive measures was very much unclear. I discussed the case with the cardiothoracic surgeon at [facility] and explained the situation to him he was in agreement to except the patient in transfer reiterating that they could consider surgical intervention over the next 1-2 days if there was any improvement in the patient's mental status. I returned to the family and went over the case again explaining that overall prognosis was very poor given what appears to be catastrophic neuronal injury. After much discussion with the family and myself and the nursing staff the 3 brothers in the extended family TO the conclusion to stop further aggressive measures and to proceed with comfort measures only including compassionate extubation. I offered emotional support to the family and spiritual/pastoral consultation was also requested and provided for the family The patient is unable or incompetent to participate in giving a history and/or making treatment decisions. The discussion was necessary for determining treatment decision. This discussion took place in the [ICU waiting area]. The total meeting time was 20min
[2017-11-16 14:08] VITALS: BP 82/51
--- NOTE | 2017-11-16 15:14 | Electrocardiograph Report ---
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
--- NOTE | 2017-11-16 15:15 | Electrocardiograph Report ---
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
--- NOTE | 2017-11-16 15:15 | Electrocardiograph Report ---
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
--- NOTE | 2017-11-16 18:14 | Death Note ---
<Kendall Maier - Last Filed: 11/16/17 18:15> Discharge Sum: Summary - Date and Time Date of admission: 11/16/17 09:29 Date of : 11/16/17 Time of : 18:12 - Summary Details: Ms. Roach is a 66-year-old woman with history of MRDD and recent C-spine fracture following a mechanical fall in June 2017 who presented to the ED and cardiac arrest status post choking incident with breakfast. The patient was eating wall Bean and choking at which time a health aide assisted her by doing the Heimlich maneuver. She apparently was able to then begin breathing on her own again while EMS was en route. Upon arrival of EMS, the patient was able to independently walk to the stretcher, however she did go into a cardiac arrest on transport to the ED. CPR was initiated immediately, and ACLS protocols were activated on arrival to the ED. The patient was intubated at which time she apparently was found to have significant food material in her airway and the use of the bougie was required to successfully obtain an airway. She underwent 5 rounds of CPR at which time she was able to achieve ROSC. An EKG at that time did demonstrate diffuse ST-T wave depressions and a CTA of the chest was obtained which demonstrated a substantial aortic dissection that involved the arch of aorta, the carotids and distended all the way to the bifurcation of the iliac arteries. The patient did arrive to the ICU and at time of examination the patient was having evidence of decortication and possible anoxic brain injury including myoclonic jerks and unequal responsive pupils which became more frequent as time. At that time we called [facility] to determine whether or not this patient may be reasonable for transfer, and they were concerned that the transport may be dangerous however they were willing to accept the patient and monitor her with the option of performing surgery depending on improvement of neurological status. At this time we spoke extensively with the family about all of the options that they had, the risks and benefits of the possible procedure, and the implications of her current physical exam findings. We explained that this procedure would likely be extremely dangerous, and is very likely that she has injury to her brain due to ischemia from the cardiac arrest. Paraeducator was present to discuss this with the patient's family as well. After some deliberation, the patient's family determined that the most appropriate action at this time would be to change the patient's CODE STATUS to DNR CC him a palliative extubate the patient and allow her to pass comfortably. These wishes were confirmed multiple times and were then enacted. The patient was extubated and treated for pain and anxiety until the time of her at 1811. - Additional Data Confirmation of as documented by pronouncing clinician: no pulse, no respirations, no heart sounds, pupils fixed and dilated Family: at bedside Additional persons at bedside: other (Nursing staff) Attending/PCP notified?: Yes Attending physician: Suhail Mccarthy MD Was code activated?: No (Patient was DNR-cc) Autopsy requested?: No appeals examiner notified?: Yes Organ bank notified?: Yes Advance directives: No Hospice patient?: No Discharge Sum: Diag - PCOD Probable Cause of : Cardiac arrest Discharge Sum: Prov - Provider Primary care physician: Evelia Forte CNP Admitting clinician: Suhail Mccarthy Attending physician on admission: Suhail Mccarthy Consults: 11/16/17 12:03 Consult to Pastoral Services [CONS] Routine Comment: Pronouncing clinician: Kendall Maier <Suhail Mccarthy - Last Filed: 11/17/17 06:29> Discharge Sum: Summary - Date and Time Date of admission: 11/16/17 09:29 - Additional Data Attending physician: Suhail Mccarthy MD Discharge Sum: Prov - Provider Primary care physician: Evelia Forte CNP Consults: 11/16/17 12:03 Consult to Pastoral Services [CONS] Routine Comment: - Attending Attestation I examined this patient and my medical decision-making was reviewed with the Resident Physician. I agree with the documented findings, disposition and treatment plan as described except to the extent set forth below.
== END 2017-11-16 19:49 | disposition expired | DRG 296 ==
LOC: EMEROO 07:36 → ICNU 09:29
PROVIDERS: ADMIT Internal Medicine Hospice and Palliative Medicine; ATTEND Internal Medicine Hospice and Palliative Medicine